=== PATIENT | female | born 1985 | race African-American/Black ===

== ENCOUNTER 2018-07-12 05:52 | Observation (INO) | payer OTHER ==
[2018-07-12] MEDS: SOD CHLORIDE 0.9% 1,000 ML IV (06:00)
[2018-07-12] MEDS: BUPIVACAINE 0.25% (MPF) 30 ML INJ (07:57)
[2018-07-12] MEDS ORDERED: PROPOFOL 100 ML ×2 (08:14→09:22)
[2018-07-12] MEDS ORDERED: LIDOCAINE 2% (SDV) 5 ML INJ (08:14)
[2018-07-12] MEDS ORDERED: ONDANSETRON 4 MG INJ (08:14)
[2018-07-12] MEDS ORDERED: ROCURONIUM 50 MG INJ (08:14)
[2018-07-12] MEDS ORDERED: DEXAMETHASONE 4 MG/ML 1 ML INJ (08:14)
[2018-07-12] MEDS ORDERED: CLINDAMYCIN 600 MG/D5W (PMX) 50 ML IVPB (08:28)
[2018-07-12] MEDS ORDERED: ALBUTEROL 0.083% (NEB) 2.5 MG/3 ML AMP HHN (10:00)
[2018-07-12] MEDS ORDERED: OXYCODONE/ACETAMINOPHEN (5/325) TAB PO (10:00)
[2018-07-12] MEDS ORDERED: MEPERIDINE 25 MG INJ IV (10:00)
[2018-07-12] MEDS ORDERED: METOCLOPRAMIDE 10 MG INJ IV (10:00)
[2018-07-12] MEDS ORDERED: DIPHENHYDRAMINE 50 MG INJ IV (10:00)
[2018-07-12] MEDS ORDERED: EPHEDrine SULFATE 50 MG/5 ML SYG IV (10:00)
[2018-07-12] MEDS ORDERED: FENTAnyl 50 MCG/ML VIAL IV ×3 (10:00)
[2018-07-12] MEDS ORDERED: KETOROLAC 30 MG INJ IV (10:00)
[2018-07-12] MEDS ORDERED: LABETALOL HCL 20MG INJ IV (10:00)
[2018-07-12] MEDS ORDERED: hydrALAzine 20 MG INJ IV (10:00)
[2018-07-12] MEDS ORDERED: HYDROmorphONE 1 MG/5 ML IV SYRINGE IV ×3 (10:00)
[2018-07-12] MEDS: ONDANSETRON 4 MG INJ IV (10:57)
[2018-07-12] MEDS: OXYCODONE/ACETAMINOPHEN (5/325) TAB PO (10:57)
[2018-07-12] MEDS ORDERED: morphine 2 MG INJ IV (16:30)
[2018-07-12] MEDS ORDERED: ONDANSETRON 4 MG INJ IV (16:30)
[2018-07-12] MEDS ORDERED: ACETAMINOPHEN 1000MG/100ML IV 100 ML IVPB (16:30)
[2018-07-12] MEDS: KETOROLAC 30 MG INJ IV ×2 (16:58→22:42)
[2018-07-12] MEDS: D5W-0.45 NACL + KCL 20 MEQ 1,000 ML IV (16:59)
[2018-07-12] MEDS: AL HYDROX/MG HYDROX/SIMETH 30 ML CUP PO (22:42)
[2018-07-13] MEDS: ACETAMINOPHEN 325 MG TAB PO (04:56)
[2018-07-13] MEDS: KETOROLAC 30 MG INJ IV ×2 (05:00→11:00)
[2018-07-13 05:16] LABS: ADD MAN DIFF? NO
[2018-07-13 05:18] LABS: WHITE BLOOD COUNT 8.7 10^3/ul (4.8-10.8)
[2018-07-13 05:18] LABS: BASOPHILS % 0.1 % (0.0-2.0); EOSINOPHILS % 0.1 % (0.0-7.0); HEMATOCRIT 35.5 % (37.0-47.0); LYMPHOCYTES # 1.8 10^3/ul (0.8-2.9); LYMPHOCYTES % 20.7 % (15.0-51.0); MEAN CORPUSCULAR HEMOGLOBIN 31.7 pg (29.0-33.0); MEAN CORPUSCULAR HGB CONC 33.8 g/dl (32.0-37.0); MEAN CORPUSCULAR VOLUME 93.9 fl (82.0-101.0); MEAN PLATELET VOLUME 10.6 fl (7.4-10.4); MONOCYTE # 1.1 10^3/ul (0.3-0.9); MONOCYTES % 12.3 % (0.0-11.0); NEUTROPHIL # 5.8 10^3/ul (1.6-7.5); NEUTROPHILS % 66.6 % (39.0-77.0); PLATELET COUNT 181 10^3/UL (140-415); RED BLOOD COUNT 3.78 10^6/ul (4.20-5.40); RED CELL DISTRIBUTION WIDTH 12.9 % (11.5-14.5)
[2018-07-13 05:35] LABS: ALANINE AMINOTRANSFERASE 24 IU/L (13-69); ALBUMIN 3.3 g/dl (3.3-4.9); ALBUMIN/GLOBULIN RATIO 1.26; ALKALINE PHOSPHATASE 49 IU/L (42-121); ANION GAP 5 (5-13); ASPARTATE AMINO TRANSFERASE 18 IU/L (15-46); BILIRUBIN,INDIRECT 0.7 mg/dl (0-1.1); BILIRUBIN,TOTAL 0.7 mg/dl (0.2-1.3); BLOOD UREA NITROGEN 6 mg/dl (7-20); CALCIUM 8.3 mg/dl (8.4-10.2); CARBON DIOXIDE 27 mmol/L (21-31); CHLORIDE 106 mmol/L (97-110); CREATININE 0.59 mg/dl (0.44-1.00); Estimated GFR > 60 mL/min (>60); GLUCOSE 122 mg/dl (70-220); POTASSIUM 3.9 mmol/L (3.5-5.1); SODIUM 138 mmol/L (135-144); TOTAL PROTEIN 5.9 g/dl (6.1-8.1)
[2018-07-13] MEDS: D5W-0.45 NACL + KCL 20 MEQ 1,000 ML IV (06:29)
[2018-07-13] MEDS: HYDROCODONE/APAP (5/325) TAB PO ×4 (13:42→20:42)
[2018-07-13 15:36] LABS: ADD UMIC NO; UR ASCORBIC ACID NEGATIVE (NEGATIVE); UR BILIRUBIN (Dip) NEGATIVE (NEGATIVE); UR BLOOD (Dip) NEGATIVE (NEGATIVE); UR CLARITY CLEAR (CLEAR); UR COLOR STRAW (YELLOW); UR GLUCOSE (Dip) NEGATIVE (NEGATIVE); UR KETONES (Dip) TRACE mg/dL (NEGATIVE); UR LEUKOCYTE ESTERASE (Dip) NEGATIVE Leu/ul (NEGATIVE); UR NITRITE (Dip) NEGATIVE (NEGATIVE); UR SPECIFIC GRAVITY (Dip) 1.008 (1.003-1.030); UR TOTAL PROTEIN (Dip) NEGATIVE (NEGATIVE); UR UROBILINOGEN (Dip) NEGATIVE (NEGATIVE)
[2018-07-13] MEDS: BETHANECHOL 25 MG TAB PO ×2 (16:53→23:03)
[2018-07-13] MEDS ORDERED: BETHANECHOL 25 MG TAB PO (21:00)
[2018-07-14] MEDS: HYDROCODONE/APAP (5/325) TAB PO ×3 (02:31→11:23)
[2018-07-14] MEDS: D5W-0.45 NACL + KCL 20 MEQ 1,000 ML IV (07:11)
[2018-07-14] MEDS: BETHANECHOL 25 MG TAB PO ×2 (08:24→13:00)
== END 2018-07-14 13:50 | disposition home or self-care (01) ==
LOC: SDS 05:52 → REC 15:01 → MS1 15:29
DX: K80.10 Calculus of gallbladder with chronic cholecystitis without obstruction (principal); F17.200 Nicotine dependence, unspecified, uncomplicated
CPT/HCPCS: 47562; 80053; 81003; 85025; 87086; 88304